=== PATIENT | female | born 1990 | race African-American/Black ===

== ENCOUNTER 2025-02-09 04:31 | Emergency (ER) | payer BC ==
[~2025-02-09] VITALS: Ht 167.6 cm; Wt 77.6 kg
[2025-02-09 04:43] VITALS: TEMP 36.7; O2SAT 98
[2025-02-09 04:52] VITALS: O2SAT 97
[2025-02-09] MEDS ORDERED: CYCL10TA21 MT (05:10)
[2025-02-09] MEDS ORDERED: NAPR-1176 MT (05:10)
[2025-02-09 05:23] VITALS: BP 126/89; PULSE 85; RESP 16
[2025-02-09] MEDS: CYCLOBENZAPRINE 10MG TABLET PO ONE (05:23)
[2025-02-09] MEDS: KETOROLAC 30MG/ML VIAL IM ONE (05:23)
== END 2025-02-09 05:27 | disposition home or self-care (01) ==
LOC: ER 04:31
DX: M54.50 Low back pain, unspecified (principal); M79.604 Pain in right leg
CPT/HCPCS: 99283; 81025; 96372; J1885